=== PATIENT | male | born 1980 | race Caucasian/White ===

== ENCOUNTER 2022-05-11 20:45 | Emergency (ER) | payer BC ==
[~2022-05-11] VITALS: Ht 167.6 cm; Wt 85.7 kg
[2022-05-11] MEDS ORDERED: EPINEPHRINE (1:1000) 1 MG/ML AMPUL ONE (20:49)
--- NOTE | 2022-05-11 20:50 | NUR ---
BIBFRIEND C/O SOB AND ALLERGIC REACTION TO NUTS.PT AAOX4 BREATHING EVENLY, THOUGH RAPIDLY. PT ATTACHED TO MONITOR AND POX. MD AT BEDSIDE. WILL CONTINUE TO MONITOR
[2022-05-11] MEDS ORDERED: diphenhydrAMINE HCL 50 MG/ML VIAL ONE (20:57)
[2022-05-11] MEDS ORDERED: methylPREDNISolone SOD SUCC 125 MG/2ML VIAL ONE (20:57)
[2022-05-11] MEDS ORDERED: FAMOTIDINE/PF INJ 20 MG/2 ML VIAL IV ONE ×2 (20:57→21:00)
[2022-05-11] MEDS ORDERED: IV NS 0.9% 1,000 ML BAG IV ONE (21:00)
[2022-05-11] MEDS ORDERED: diphenhydrAMINE HCL 50 MG/ML VIAL IV ONE (21:00)
[2022-05-11] MEDS ORDERED: methylPREDNISolone SOD SUCC 125 MG/2ML VIAL IV ONE (21:00)
[2022-05-11] MEDS ORDERED: ALBUTEROL FS 2.5 MG/3 ML VIAL.NEB NEB ONE (21:00)
[2022-05-11] MEDS ORDERED: EPINEPHRINE (1:1000) MDV 30 MG/30ML VIAL SUBCUT ONE (21:00)
[2022-05-11] MEDS ORDERED: IPRATROPIUM NEB FS 0.5 MG/2.5 ML AMPUL.NEB NEB ONE (21:00)
--- NOTE | 2022-05-11 21:01 | NUR ---
IV ESTABLISHED RAC #18G S/L
[2022-05-11] MEDS ORDERED: ONDANSETRON HCL/PF 4 MG/2 ML VIAL ONE (21:02)
--- NOTE | 2022-05-11 21:03 | NUR ---
LARGE EMESIS NOTED. ADMINISTERED ZOFRAN 4MG IVP ORDERED
[2022-05-11] MEDS ORDERED: ALBUTEROL FS 2.5 MG/3 ML VIAL.NEB ONE (21:13)
[2022-05-11] MEDS ORDERED: IPRATROPIUM NEB FS 0.5 MG/2.5 ML AMPUL.NEB ONE (21:13)
--- NOTE | 2022-05-11 21:19 | NUR ---
RT AT PT'S BEDSIDE FOR BREATHING TX
[2022-05-11] MEDS ORDERED: ONDANSETRON HCL/PF 4 MG/2 ML VIAL IVP ONE (21:30)
[2022-05-11] MEDS ORDERED: FAMO-131 PO (21:52)
[2022-05-11] MEDS ORDERED: PRED50TA PO (21:52)
[2022-05-11] MEDS ORDERED: EPIN0.3P3 IM (21:52)
[2022-05-11] MEDS ORDERED: DIPH50CA4 PO (21:52)
--- NOTE | 2022-05-11 22:50 | NUR ---
Patient discharged to home in stable condition. Written and verbal after care instructions given. Patient verbalizes understanding of instruction. IV removed. Catheter intact and site benign. Pressure and 4x4 applied to site. No bleeding noted. Pt ambulatory with a steady gait.
[2022-05-11 23:07] VITALS: BP 145/78
== END 2022-05-11 22:50 | disposition home or self-care (01) ==
LOC: ER 20:46
DX: T78.01XA Anaphylactic reaction due to peanuts, initial encounter (principal); Z60.2 Problems related to living alone
CPT/HCPCS: 99285; 96374; 96375; 96361; 96372; 94640 ×2; J1200; J0171 ×2; J3490; J2930; J2405; J7030